=== PATIENT | female | born 1930 | race Caucasian/White ===

== ENCOUNTER 2020-06-03 18:35 | Emergency (ER) | payer OTHER ==
[2020-06-03 19:01] VITALS: BP 161/94; PULSE 81; TEMP 98.1; BMI 31.1
--- NOTE | 2020-06-03 19:47 | PDOC ---
Documentation entered by Simone Paul SCRIBE, acting as scribe for Karoline Fernandez MD. Karoline Fernandez MD: This documentation has been prepared by the Humberto arechiga Angel, SCRIBE, under my direction and personally reviewed by me in its entirety. I confirm that the documentation accurately reflects all work, treatment, procedures, and medical decision making performed by me. History of Present Illness - General Chief Complaint: Injury Stated Complaint: FACIAL INJURY Time Seen by Provider: 06/03/20 19:15 History Source: Patient Exam Limitations: No Limitations - History of Present Illness Initial Comments: 06/03/20 19:46 The patient is an 89 year old female with a significant past medical history HTN and HL who presents to the ED s/p fall this morning. The patient states she was getting out of bed after taking a relaxer and missed her cane. The patient notes hitting her head and has obvious trauma to her right eye and an abrasion on her chin which she was not aware of until examined here in the ED. The patient also complains of pain in her right pinky toe. The patient denies neck pain, back pain, LOC or any other complaints here in the ED. Assessment and plan: This is an 89-year-old female who lost her balance while hurrying to answer the phone after taking a sedative. Patient fell striking her face. Patient denies passing out. Patient denied any neck pain. Patient had evidence of some facial injury and trauma so CAT scan of the head and facial bones was ordered. 06/03/20 19:48 CAT scans was negative for any acute intracranial pathology or fractures of the facial bones. Patient discharged will follow up with her primary care doctor Past History - Medical History Allergies/Adverse Reactions: Allergies Allergy/AdvReac Type Severity Reaction Status Date / Time No Known Allergies Allergy Verified 09/22/16 11:27 Home Medications: Ambulatory Orders Hydrochlorothiazide [Hctz -] 12.5 mg PO DAILY 09/22/16 Lisinopril [Prinivil] 20 mg PO DAILY 09/22/16 Mirtazapine [Remeron -] 15 mg PO DAILY 09/22/16 Simvastatin [Zocor -] 20 mg PO HS 09/22/16 Carvedilol [Coreg] 6.25 mg PO BID 06/03/20 COPD: No HTN: Yes Hypercholesterolemia: Yes - Surgical History Cholecystectomy: Yes - Psycho-Social/Smoking History Smoking History: Never smoked Have you smoked in the past 12 months: No Information on smoking cessation initiated: No - Substance Abuse Hx (Audit-C & DAST Scrn) How often the patient has a drink containing alcohol: Never Score: In Men: 4 or > Positive; In Women: 3 or > Positive: 0 Screen Result (Pos requires Nsg. Audit-10AR): Negative In the last yr the pt used illegal drug/Rx for NonMed reason: No Score: Yes response is considered Positive: 0 Screen Result (Positive result requires Nsg. DAST-10): Negative Review of Systems - Review of Systems Able to Perform ROS?: Yes Comments:: 06/03/20 19:55 General: No fevers or chills, no weakness, no weight loss HEENT: +Hemorrhage in the right eye. No change in vision. No sore throat. No ear pain CardioVascular: No chest pain or shortness of breath Respiratory:No cough, or wheezing. Gastrointestinal: no nausea, vomiting, diarrhea or constipation, No rectal bleeding Genitourinary: No dysuria, hematuria, or frequency Musculoskeletal: +Pain/swelling in 5th right toe. Neurologic: No headache, vertigo, dizziness or loss of consciousness Psychiatric: nor depression Skin: No rashes or easy bruising Endocrine: no increased thirst or abnormal weight change Allergic: no skin or latex allergy All other systems reviewed and normal *Physical Exam - Vital Signs Last Vital Signs Temp Pulse Resp BP Pulse Ox 98.1 F 81 18 161/94 97 06/03/20 18:35 06/03/20 18:35 06/03/20 18:35 06/03/20 18:35 06/03/20 18:35 - Physical Exam 06/03/20 19:55 GENERAL: The patient is awake, alert, and fully oriented, in no acute distress. HEAD: +Abrasion on chin. EYES: + Right eye Periorbital ecchymosis and swelling. Right eye Tenderness of the orbital bones. Subconjunctival hemorrhage in the right lateral eye. No cervical tenderness. EXTREMITIES: +Swelling on the dorsum of the right foot. Tenderness on palpation on the base of 4th and 5th toes. Neurovascular intact. Normal range of motion. NEUROLOGICAL: Normal speech, normal gait. PSYCH: Normal mood, normal affect. SKIN: Warm, Dry, normal turgor, no rashes or lesions noted. Discharge - Discharge Information Problems reviewed: Yes Clinical Impression/Diagnosis: Subconjunctival hematoma Qualifiers: Laterality: right Qualified Code(s): H11.31 - Conjunctival hemorrhage, right eye Abrasion of chin Qualifiers: Encounter type: initial encounter Qualified Code(s): S00.81XA - Abrasion of other part of head, initial encounter Fall Qualifiers: Encounter type: initial encounter Qualified Code(s): W19.XXXA - Unspecified fall, initial encounter Condition: Stable Disposition: HOME - Admission No - Follow up/Referral Referrals: Kostas Stevens MD [Primary Care Provider] - - Patient Discharge Instructions Additional Instructions: Tylenol as needed for pain. Return to the emergency department immediately with ANY new, persistent or worsening symptoms. Continue any medications as previously prescribed by your physician. You should follow up with your primary doctor as soon as possible regarding today's emergency department visit. . Please make sure your doctor reviews the results of your emergency evaluation. Thank you for coming to the Emergency Department today for your care. It was a pleasure to see you today. Please note that your evaluation is INCOMPLETE until you follow-up with your doctor. - Post Discharge Activity
== END 2020-06-03 22:28 | disposition home or self-care (01) ==
LOC: FER 18:35
DX: H11.31 Conjunctival hemorrhage, right eye (principal); S00.81XA Abrasion of other part of head, initial encounter; W19.XXXA Unspecified fall, initial encounter
CPT/HCPCS: 70450-TC; 70486-TC; 73630-TC-RT-FY; 99284-25